=== PATIENT | male | born 1995 | race American Indian/Alaskan Native ===

== ENCOUNTER 2022-03-20 18:43 | Emergency (ER) | payer SELFPAY ==
--- NOTE | 2022-03-20 21:22 | Emergency Department Report ---
ED Palpitations HPI - General Chief Complaint: Arrhythmia/Palpitations Stated Complaint: TACY Time Seen by Provider: 03/20/22 20:09 Source: patient, EMS Mode of arrival: Ambulatory Limitations: No Limitations - History of Present Illness Initial Comments: 26-year-old male who denies any known past medical history brought in by EMS for evaluation of rapid heart rate. Patient states that he felt symptoms of a rapid heart rate yesterday but this spontaneously resolved after 5 to 10 minutes and the only lasted in total for that duration of time. He states today he was walking to the store and when walking back his heart started "racing very fast." He states he felt dizzy lightheaded and nauseated but denies having any chest pain. Prior to yesterday he states he never had similar symptoms in the past. No syncope. No head injury. He states that he has been having several cans of red bull lately states he occasionally drinks it. He denies any other caffeinated products. He states he smokes marijuana but denies any other illicit drug usage. No recent prolonged travel history or immobilization. Pain currently 0-10. - Related Data Allergies Allergy/AdvReac Type Severity Reaction Status Date / Time Penicillins Allergy Hives Verified 03/20/22 19:28 ED Review of Systems ROS: Stated complaint: TACY Other details as noted in HPI Comment: All other systems reviewed and negative Constitutional: no symptoms reported Eyes: as per HPI ENT: as per HPI Respiratory: no symptoms reported Cardiovascular: chest pain Endocrine: no symptoms reported Gastrointestinal: nausea. denies: abdominal pain, vomiting, diarrhea, constipation, hematemesis Musculoskeletal: as per HPI Skin: as per HPI Neurological: as per HPI Psychiatric: denies: anxiety, depression, auditory hallucinations, visual hallucinations, homicidal thoughts Hematological/Lymphatic: denies: easy bleeding, easy bruising, swollen glands ED Past Medical Hx - Past Medical History Previous Medical History?: No ED Physical Exam - General Limitations: No Limitations, Language Barrier General appearance: alert, in no apparent distress - Head Head exam: Present: atraumatic, normocephalic, normal inspection - Eye Eye exam: Present: normal appearance, PERRL, EOMI - ENT ENT exam: Present: normal exam, normal orophraynx, mucous membranes dry - Neck Neck exam: Present: normal inspection - Respiratory Respiratory exam: Present: normal lung sounds bilaterally - Cardiovascular Cardiovascular Exam: Present: regular rate, normal rhythm, normal heart sounds. Absent: bradycardia, tachycardia, irregular rhythm, systolic murmur, diastolic murmur, rubs, gallop, clicks, JVD, S3, S4, other - GI/Abdominal GI/Abdominal exam: Present: soft, normal bowel sounds. Absent: distended, tenderness, guarding, rebound, rigid, hyperactive bowel sounds, hypoactive bowel sounds, organomegaly, mass, bruit, pulsatile mass, hernia, other - Extremities Exam Extremities exam: Present: normal inspection, full ROM, normal capillary refill. Absent: tenderness, pedal edema, joint swelling, calf tenderness - Back Exam Back exam: Present: normal inspection, full ROM. Absent: tenderness, CVA tenderness (L), muscle spasm, paraspinal tenderness, rash noted - Neurological Exam Neurological exam: Present: alert, oriented X3, CN II-XII intact, normal gait, motor sensory deficit - Psychiatric Psychiatric exam: Present: normal affect - Skin Skin exam: Present: warm, dry, intact, normal color ED Course Vital Signs 03/20/22 03/20/22 03/20/22 17:52 19:20 21:52 Temperature 99.8 F H Pulse Rate 86 116 H 117 H Respiratory 14 18 18 Rate Blood Pressure 152/80 152/80 Blood Pressure 136/84 [Right] O2 Sat by Pulse 98 98 99 Oximetry 03/20/22 03/20/22 03/20/22 21:59 22:00 22:16 Temperature 99.2 F Pulse Rate 109 H 105 H Respiratory 14 24 Rate Blood Pressure 136/84 136/84 Blood Pressure [Right] O2 Sat by Pulse 99 99 Oximetry 03/20/22 03/20/22 03/20/22 22:30 22:45 23:00 Temperature Pulse Rate 104 H 94 H 104 H Respiratory 17 27 H 16 Rate Blood Pressure 136/84 129/67 129/67 Blood Pressure [Right] O2 Sat by Pulse 98 98 96 Oximetry 03/20/22 03/20/22 03/20/22 23:16 23:30 23:46 Temperature Pulse Rate 99 H 94 H 94 H Respiratory 22 22 18 Rate Blood Pressure 129/67 129/67 133/65 Blood Pressure [Right] O2 Sat by Pulse 98 97 96 Oximetry 03/20/22 03/21/22 03/21/22 23:50 00:00 00:16 Temperature Pulse Rate 97 H 97 H 96 H Respiratory 23 24 26 H Rate Blood Pressure 133/65 133/65 133/65 Blood Pressure [Right] O2 Sat by Pulse 96 95 97 Oximetry 03/21/22 03/21/22 03/21/22 00:30 00:46 01:00 Temperature Pulse Rate 97 H 108 H 93 H Respiratory 22 20 24 Rate Blood Pressure 133/65 131/73 131/73 Blood Pressure [Right] O2 Sat by Pulse 94 96 95 Oximetry 03/21/22 03/21/22 01:16 01:22 Temperature 98.9 F Pulse Rate 90 Respiratory 23 Rate Blood Pressure 131/73 Blood Pressure [Right] O2 Sat by Pulse 100 Oximetry - Reevaluation(s) Reevaluation #1: 03/21/22 21:00 Patient reassessed. He denies any complaints at this time. Heart rate is 86 bpm on med admin. We will continue to monitor. ED Medical Decision Making - Lab Data Result diagrams: 03/20/22 21:23 03/20/22 21:23 - EKG Data -: EKG Interpreted by Me EKG shows normal: sinus rhythm Rate: normal - EKG Data When compared to previous EKG there are: no significant change 03/21/22 00:39 EKG interpreted by me: Ventricular rate 96 bpm. P waves are present and proceed every QRS complex. Intervals normal. No ST segment depressions.. Patient has high voltage in prec ordial leads. He has benign early repolarization. No ectopy. No arrhythmia. Normal axis. - Radiology Data Radiology results: report reviewed - Medical Decision Making 26-year-old male presents with what he states with rapid heart rate. Vital signs stable. Patient demonstrated no tachyarrhythmia or dysrhythmia here. His heart rate remained normal and he was observed for several hours. He had no active or evolving symptoms. Labs grossly unremarkable. Chest x-ray normal as well. Patient given intravenous fluids as he states "I feel dehydrated.", Wells criteria 0. No further emergent work-up warranted at this time. Patient stable for discharge to home. Prior to discharge patient was advised to follow- up with his primary care doctor within 1 business day for immediate reassessment. He was advised to avoid any stimulants as well. Patient verbalized understanding and agreement the plan of care. Critical Care Time: No Critical care attestation.: If time is entered above; I have spent that time in minutes in the direct care of this critically ill patient, excluding procedure time. ED Disposition Clinical Impression: Palpitations Disposition: HOME / SELF CARE / HOMELESS Is pt being admited?: No Does the pt Need Aspirin: No Condition: Stable Additional Instructions: The cause of your symptoms were not found today in the emergency department. But it is strongly recommended that you follow-up with a primary care doctor within 1 business days for immediate reassessment. This is very important. DO not resume playing any sports or performing any strenuous activities until you are seen by your doctor. Your doctor may require you to be referred to a ammonia print operator. If you do not have a primary care doctor, call Dr. Richard. Esquivel, tomorrow morning. Avoid any stimulants such as caffeinated products, energy drinks, or any other stimulants which may be the trigger for your symptoms. Observe your symptoms very carefully. Return to the nearest emergency departm ent soon as possible if you develop recurrent palpitations or fast heart rate, any chest pain shortness of breath difficulty breathing, or if any other new worrisome symptoms develop Referrals: VIVEK HERNANDEZ MD [Primary Care Provider] - 3-5 Days
--- NOTE | 2022-03-20 21:25 | XRay Report ---
CHEST 1 VIEW INDICATION: palpitations. COMPARISON: None. FINDINGS: Support devices: None. Heart: Normal. Lungs/Pleura: No acute pulmonary or pleural findings. IMPRESSION: 1. No acute findings. Signer Name: Mello Bell MD Signed: 03/20/2022 9:21 PM Workstation Name: [id number]
[2022-03-20] MEDS ORDERED: SODIUM CHLORIDE 0.9% 1000 ML 1,000 ML IV ONE (21:26)
[2022-03-20 21:32] LABS: Hemoglobin 13.7 gm/dl (11.8-15.2); Mean Corpuscular HGB Conc 35 % (32-34); Mean Corpuscular Volume 83 fl (84-94); Platelet Count 350 K/mm3 (140-440); Red Blood Count 4.68 M/mm3 (3.65-5.03); Red Cell Distribution Width 14.6 % (13.2-15.2)
[2022-03-20 21:57] LABS: Alanine Aminotransferase 10 units/L (7-56); Albumin 3.7 g/dL (3.9-5); BUN/Creatinine Ratio 11; Blood Urea Nitrogen 10 mg/dL (9-20); Calcium 8.7 mg/dL (8.4-10.2); Hemolysis Index 59
[2022-03-20] MEDS ORDERED: ACETAMINOPHEN 500 MG TAB PO ONE (22:00)
[2022-03-20 23:06] LABS: Total Cells Counted 100
[2022-03-20 23:07] LABS: Platelet Estimate Consistent w Auto
[2022-03-21 01:21] VITALS: BP 131/73
--- NOTE | 2022-03-21 13:19 | Electrocardiograph Report ---
[facility] Test Date: 2022-03-21 Test Time: 00:13:14 Pat Name: MOHAN BUCK Department: Room: Gender: M [employer] Instructor: LINA : 1995 Requested By: CARLOS AMAYA Order Number: [id number] Reading MD: Des Goddard Measurements Intervals [place] Rate: 96 P: 66 IA: 148 QRS: 74 QRSD: 94 T: 60 QT: 362 QTc: 457 Interpretive Statements Sinus rhythm ST elevation, consider inferior injury versus early repolarization No previous ECG available for comparison Electronically Signed On 03-21-2022 13:18:47 EDT by Des Goddard
== END 2022-03-21 03:25 | disposition home or self-care (01) ==
LOC: ED 18:43
DX: R00.2 Palpitations (principal); R00.0 Tachycardia, unspecified; Z88.0 Allergy status to penicillin; Z79.899 Other long term (current) drug therapy
CPT/HCPCS: 36415; 71045; 80053; 83735; 85007; 85025; 93005; 96360; 99284